=== PATIENT | female | born 1980 | race Two or more races ===

== ENCOUNTER 2022-12-04 16:07 | Emergency (ER) | payer OTHER ==
[~2022-12-04] VITALS: Ht 160 cm; Wt 82.0 kg
[2022-12-04 16:41] LABS: BASO% 0.5 % (0-3); EOS% 1.2 % (0-8); HEMATOCRIT 38.8 % (37.0-47.0); HEMOGLOBIN 12.5 g/dl (12.0-16.0); IMMATURE GRANULOCYTES 0.2 % (0.0-5.0); LYMPH% 25.9 % (15-41); MEAN CELL VOLUME 83.8 fL CALC (80.0-100.0); MEAN CORPUSCULAR HGB CONC 32.2 g/dL CAL (32.0-36.0); MONO% 4.2 % (2-13); NEUT# 6.73 thou/uL (2.00-7.15); RED BLOOD COUNT 4.63 mill/uL (4.20-5.60); RED CELL DISTRI WIDTH 14.5 % (11.5-15.5)
[2022-12-04 16:51] LABS: ALBUMIN 4.4 g/dL (3.2-5.0); ALKALINE PHOSPHATASE 66 u/l (38-126); ANION GAP 14 (6-22 (CALC)); BUN 17 mg/dL (7-17); BUN/CREATININE RATIO 24 (12-20 (CALC)); CARBON DIOXIDE 22 mmol/l (22-30); CHLORIDE 107 mmol/l (95-108); CREATININE 0.7 mg/dL (0.5-1.0); ETHYL ALCOHOL 0 mg/dl (0-30); GFR FOR AFR.AMER. > 60 ML/MIN (>=60 (CALC)); GFR OTHER RACES > 60 ML/MIN (>=60 (CALC)); SGOT/AST 39 u/l (14-36); SODIUM 139 mmol/l (137-146); TOTAL PROTEIN 8.4 g/dL (6.3-8.2)
[2022-12-04 16:53] LABS: BILIRUBIN, TOTAL 0.4 mg/dL (0.02-1.3)
[2022-12-04 19:53] VITALS: BP 120/68
== END 2022-12-04 19:54 | disposition home or self-care (01) | DRG 918 ==
LOC: ED 16:07
PROVIDERS: Family Medicine
DX: T58.8X1A Toxic effect of carbon monoxide from other source, accidental (unintentional), initial encounter (principal); R06.02 Shortness of breath; R51.9 Headache, unspecified; R11.0 Nausea